=== PATIENT | female | born 1955 | race Caucasian/White ===

== ENCOUNTER 2024-12-18 12:13 | Emergency (ER) | payer OTHER, MEDICARE, SELFPAY ==
--- NOTE | 2024-12-18 12:20 | ED.URI ---
HPI - URI/Sore Throat General Chief Complaint: Upper Respiratory Infection Stated Complaint: SORE THROAT/EARS/BODY ACHES/SWEATS/TIRED Source: patient and RN notes reviewed Mode of arrival: ambulatory Limitations: no limitations History of Present Illness MD elicited complaint: cough Review of Systems Review of Systems: CONSTITUTIONAL: Endorses malaise, body aches, chills, sweats, fever EYES: Denies visual changes, redness, or discharge ENT: Reports rhinorrhea, congestion, sinus pain, otalgia, sore throat CARDIOVASCULAR: Denies chest pain, palpitations, edema RESPIRATORY: Reports cough, post nasal drainage. Denies dyspnea GASTROINTESTINAL: Denies abdominal pain, nausea, vomiting, diarrhea SKIN: Denies rash or itching NEUROLOGIC: Denies headache Exam Narrative: GENERAL: Ill-appearing, nontoxic no acute distress. EYES: conjunctivae clear ENT: Mucous membranes moist. TM pearly drake with dull light reflex bilaterally; no tragal tenderness. Oropharynx erythematous without lesions or exudate, no drooling, no hoarseness, no trismus, uvula midline. No tripod positioning, muffled voice, soft palate or pharyngeal wall bulging NECK: Supple. No lymphadenopathy CHEST: Clear to auscultation, breath sounds equal. No wheezing, rhonchi, rales, or stridor. No respiratory distress, speaks in full sentences. HEART: Regular rate and rhythm. No murmur heard. SKIN: Warm, dry, no rash. NEURO: Alert and oriented x3. PSYCH: Normal mood and affect Course Course Emergency Course: Patient is aware of diagnosis, understands and agrees to treatment plan. Anticipatory guidance given. Patient agrees to follow-up as directed and is aware of reasons to seek care at the emergency department. Portions of this record may have been created with voice recognition software Level of Care: Express Care Visit Vital Signs Vital signs: reviewed MDM - URI/Sore Throat MDM Narrative Medical decision making narrative: Discussed physical exam findings. Advised supportive measures and signs/symptoms to go to the ER. Pt is appropriate for outpt treatment and f/u. Differential Diagnosis Differential diagnosis: Likely upper respiratory infection, sinusitis and viral infection Discharge Plan Discharge Patient Language: Qatari Follow-up/Referrals: Marlo,Hannah [Other]
[2024-12-18 12:30] VITALS: BP 129/59; PULSE 79; RESP 16; TEMP 36.3; O2SAT 98
[2024-12-18 12:47] LABS: EDCOVIDSCREEN Negative (Negative); EDINFLUASCREEN Negative (Negative); EDINFLUBSCREEN Negative (Negative); EDSTREPNEGPOS1 Negative (Negative)
--- NOTE | 2024-12-18 13:07 | ED_ITS ---
HPI - URI/Sore Throat General Chief Complaint: Upper Respiratory Infection Stated Complaint: SORE THROAT/EARS/BODY ACHES/SWEATS/TIRED Time Seen by Provider: 12/18/24 13:08 Source: patient and RN notes reviewed Mode of arrival: ambulatory Limitations: no limitations History of Present Illness HPI Narrative: 69 y/o female with hx HTN and asthma presented for c/o sore throat, headache, body aches, sinus pressure/congestion, cough, body aches, fever/chills. Onset 4 days. son tested positive for strep 5 days ago. Denies sob, wheezing, n/v/d. Taking Robitussin, Mucinex, and Nyquil. MD elicited complaint: cough Related Data Home Medications ?Medication ?Instructions ?Recorded ?Confirmed ?Last Taken ?Type amitriptyline 25 mg tablet mg 12/18/24 Unknown Histor y amlodipine 2.5 mg tablet mg 12/18/24 Unknown History amlodipine 5 mg tablet mg 12/18/24 Unknown History atorvastatin 20 mg tablet mg 12/18/24 Unknown History budesonide-formoterol HFA 80 inhalation 12/18/24 Unkn own History mcg-4.5 mcg/actuation aerosol inhaler dapagliflozin propanediol 10 mg mg 12/18/24 Unknown H istory tablet furosemide 20 mg tablet mg 12/18/24 Unknown History levothyroxine 50 mcg tablet mcg 12/18/24 Unknown Hist ory (Synthroid) losartan 100 mg tablet mg 12/18/24 Unknown History meloxicam 7.5 mg tablet mg 12/18/24 Unknown History metformin 500 mg tablet,extended mg PO 12/18/24 Unkno wn History release 24 hr metoprolol succinate 100 mg mg PO 12/18/24 Unknown Hi story tablet,extended release 24 hr montelukast 10 mg tablet mg 12/18/24 Unknown History rimegepant 75 mg disintegrating mg 12/18/24 Unknown H istory tablet (Nurtec ODT) tirzepatide (weight loss) 2.5 mg subcut 12/18/24 Unkn own History mg/0.5 mL subcutaneous pen injector (Zepbound) Allergies Allergy/AdvReac Type Severity Reaction Status Date / Time iodine Allergy Intermediate Hives Verified 12/18/24 12:29 Sulfa (Sulfonamide Allergy Intermediate Rash Verified 12/18/24 12:29 Antibiotics) Review of Systems Review of Systems: CONSTITUTIONAL: Endorses malaise, body aches, chills, sweats, fever EYES: Denies visual changes, redness, or discharge ENT: Reports rhinorrhea, congestion, sore throat CARDIOVASCULAR: Denies chest pain, palpitations, edema RESPIRATORY: Reports cough, post nasal drainage. Denies dyspnea GASTROINTESTINAL: Denies abdominal pain, nausea, vomiting, diarrhea SKIN: Denies rash or itching NEUROLOGIC: Denies headache [facility] Past Medical History Medical History (Updated 12/18/24 @ 13:17 by Krista Uribe, [employer]) Hypertension Asthma Exam Narrative: GENERAL: mildly Ill-appearing, nontoxic no acute distress. EYES: conjunctivae clear ENT: Mucous membranes moist. TMs pearly drake with dull light reflex and clear effusion bilaterally; no tragal tenderness. Oropharynx not erythematous without lesions or exudate, tonsils absent no drooling, no hoarseness, no trismus, uvula midline. No tripod positioning, muffled voice, soft palate or pharyngeal wall bulging NECK: Supple. No lymphadenopathy CHEST: Clear to auscultation, breath sounds equal. No wheezing, rhonchi, rales, or stridor. No respiratory distress, speaks in full sentences. HEART: Regular rate and rhythm. SKIN: Warm, dry, no rash. NEURO: Alert and oriented x3. PSYCH: Normal mood and affect Course Course Emergency Course: Patient is aware of diagnosis, understands and agrees to treatment plan. Anticipatory guidance given. Patient agrees to follow-up as directed and is aware of reasons to seek care at the emergency department. Portions of this record may have been created with voice recognition software Level of Care: Express Care Visit Vital Signs Vital signs: Vital Signs Temperature 97.3 F L 12/18/24 12:30 Pulse Rate 79 12/18/24 12:30 Respiratory Rate 16 12/18/24 12:30 Blood Pressure 129/59 L 12/18/24 12:30 Pulse Oximetry 98 12/18/24 12:30 Temperature 97.3 F L 12/18/24 12:30 Pulse Rate 79 12/18/24 12:30 Respiratory Rate 16 12/18/24 12:30 Blood Pressure 129/59 L 12/18/24 12:30 Pulse Oximetry 98 12/18/24 12:30 reviewed MDM - URI/Sore Throat MDM Narrative Medical decision making narrative: Discussed physical exam findings; neg flu covid and strep. will culture. Advised supportive measures for now. Reviewed signs/symptoms to go to the ER. Pt is appropriate for outpt treatment and f/u. Differential Diagnosis Differential diagnosis: Likely upper respiratory infection, otitis media, sinusitis, viral infection, bronchitis, influenza and pharyngitis Lab Data Labs: Lab Results 12/18/24 Range/Units 12:45 POC Influenza A Ag Negative (Negative) POC Influenza B Ag Negative (Negative) POC SARS CoV-2 Ag Negative (Negative) POC Grp A Strep Screen Negative (Negative) Discharge Plan Discharge Clinical Impression: Upper respiratory infection Patient Disposition: Home Condition: Stable Instructions: Upper Respiratory Infection (ED) Additional Instructions: Flu and COVID negative. Rapid strep swab was negative today You will be notified in a few days if the culture comes back positive for strep, and appropriate antibiotics will be called in at that time. if symptoms are due to a viral illness, it is not treated with antibiotics. Viral symptoms can be present for up to 10-14 days. Recommendations: Flonase spray and Zyrtec for sinus congestion Cough syrup may cause drowsiness; avoid driving or take it at night time. Tylenol every 8 hours as needed for pain/fever Soft foods, cool liquids, warm tea. Gargle with warm saltwater twice a day. Chloraseptic spray and throat lozenges. Rest and stay hydrated. --Follow up with your PCP --Go to the ER immediately if you cannot swallow your saliva, trouble breathing/ wheezing, throat swelling, pain is persistent and severe Patient Language: [place] Island[place] Prescriptions: No Action atorvastatin 20 mg tablet metoprolol succinate 100 mg tablet extended release 24 hr PO amlodipine 2.5 mg tablet amlodipine 5 mg tablet meloxicam 7.5 mg tablet amitriptyline 25 mg tablet levothyroxine [Synthroid] 50 mcg tablet montelukast 10 mg tablet furosemide 20 mg tablet losartan 100 mg tablet metformin 500 mg tablet extended release 24 hr PO budesonide-formoterol 80-4.5 mcg/actuation HFA aerosol inhaler INHALATION dapagliflozin propanediol 10 mg tablet Nurtec ODT 75 mg tablet,disintegrating Zepbound 2.5 mg/0.5 mL pen injector SUBCUT Follow-up/Referrals: Marlo,Hannah [Other] Stand Alone Forms: Work/School Release IP
== END 2024-12-18 13:21 | disposition home or self-care (01) ==
PROVIDERS: Emergency Provider Nurse Practitioner Family
DX: J06.9 Acute upper respiratory infection, unspecified (principal); I10 Essential (primary) hypertension; Z79.899 Other long term (current) drug therapy; Z79.84 Long term (current) use of oral hypoglycemic drugs; Z79.1 Long term (current) use of non-steroidal anti-inflammatories (NSAID); Z20.822 Contact with and (suspected) exposure to COVID-19
CPT/HCPCS: 87081; 87426; 87804; 87880; 99203; G0463

== ENCOUNTER 2025-03-23 10:59 | Emergency (ER) | payer OTHER, MEDICARE, SELFPAY ==
--- NOTE | 2025-03-23 11:03 | ED_ITS ---
HPI - URI/Sore Throat General Chief Complaint: Upper Respiratory Infection Stated Complaint: sore throat, cough Time Seen by Provider: 03/23/25 11:03 Source: patient Mode of arrival: ambulatory Limitations: no limitations History of Present Illness HPI Narrative: Soraida is a 70-year-old female patient presenting to the clinic today with complaints of sore throat, nasal congestion, nausea, and cough x3 days. She r eports her son tested positive yesterday for strep. Is requesting strep testing. Related Data Home Medications ?Medication ?Instructions ?Recorded ?Confirmed ?Last Taken ?Type amitriptyline 25 mg tablet mg 12/18/24 Unknown Histor y amlodipine 5 mg tablet mg 12/18/24 Unknown History atorvastatin 20 mg tablet mg 12/18/24 Unknown History budesonide-formoterol HFA 80 inhalation 12/18/24 Unkn own History mcg-4.5 mcg/actuation aerosol inhaler dapagliflozin propanediol 10 mg mg 12/18/24 Unknown H istory tablet furosemide 20 mg tablet mg 12/18/24 Unknown History levothyroxine 50 mcg tablet mcg 12/18/24 Unknown Hist ory (Synthroid) losartan 100 mg tablet mg 12/18/24 Unknown History meloxicam 7.5 mg tablet mg 12/18/24 Unknown History metformin 500 mg tablet,extended mg PO 12/18/24 Unkno wn History release 24 hr metoprolol succinate 100 mg mg PO 12/18/24 Unknown Hi story tablet,extended release 24 hr montelukast 10 mg tablet mg 12/18/24 Unknown History rimegepant 75 mg disintegrating mg 12/18/24 Unknown H istory tablet (Nurtec ODT) tirzepatide (weight loss) 2.5 mg subcut 12/18/24 Unkn own History mg/0.5 mL subcutaneous pen injector (Zepbound) Allergies Allergy/AdvReac Type Severity Reaction Status Date / Time iodine Allergy Intermediate Hives Verified 03/23/25 11:23 Sulfa (Sulfonamide Allergy Intermediate Rash Verified 03/23/25 11:23 Antibiotics) Review of Systems Review of Systems: Pertinent positives per HPI. Patient denies any fever, chills, rash, headache, visual changes, dizziness, shortness of breath, chest pain, palpitations, nausea, vomiting, diarrhea, constipation, abdominal pain, or any urinary issues. [facility] Past Medical History Medical History Hypertension Asthma Comments At the time of my signature, I reviewed and agree with the nursing past medical, surgical, social, and family history. There is no relevant family history pertinent to the patient complaint. Exam Narrative: General: Well-developed, morbidly obese, in no apparent distress Head: Normocephalic, atraumatic Eyes: Pupils equally round and reactive to light bilaterally, EOM intact, sclera and conjunctive clear, no discharge, lids normal Ears: TMs intact and congested, ear canals clear, no drainage, grossly hearing normal. Nose: Nares patent, clear nasal discharge, mild inflammation, no sinus tenderness. Mouth: Oropharynx red without lesions or masses, good dentition, MMM. Postnasal drip Neck: Supple, trachea midline, no enlargement of anterior or posterior cervical nodes, no thyroid masses or goiter palpable. Cardio: Regular rate and rhythm, s1 and s2 normal, no murmur appreciated. Resp: Clear to auscultation bilaterally anteriorly and posteriorly, no rhonchi, rales, wheezing or rubs Course Course Level of Care: Express Care Visit Vital Signs Vital signs: Vital Signs Temperature 36.1 C L 03/23/25 11:17 Pulse Rate 66 03/23/25 11:17 Respiratory Rate 18 03/23/25 11:17 Blood Pressure 100/58 L 03/23/25 11:17 Pulse Oximetry 98 03/23/25 11:17 Oxygen Delivery Room Air 03/23/25 11:17 Temperature 36.1 C L 03/23/25 11:17 Pulse Rate 66 03/23/25 11:17 Respiratory Rate 18 03/23/25 11:17 Blood Pressure 100/58 L 03/23/25 11:17 Pulse Oximetry 98 03/23/25 11:17 Oxygen Delivery Room Air 03/23/25 11:17 [facility] Narrative Medical decision making narrative: At the time of visit patient is resting comfortably on the exam table. Patient appears to be nontoxic. Complaints of sore throat, nasal congestion, nausea, and cough x3 days. She reports her son tested positive yesterday for strep. Is requesting strep testing. On exam patient has bilateral TMs intact and congested, clear nasal drainage, mild anterior turbinate inflammation, oral pharynx red with postnasal drip, no cervical lymphadenopathy, lung sounds are clear, heart rates regular rate and rhythm. COVID, flu, strep test were ordered. Labs: COVID, influenza, and strep test were performed. Plan: Supportive measures were discussed with the patient and they voiced understanding discharge instructions and agrees to treatment plan. Return precautions reviewed Differential Diagnosis Differential Diagnosis: Differential diagnostic considerations for upper respiratory infection include upper respiratory infection, croup, otitis media, sinusitis, viral infection, bronchitis, influenza, pharyngitis, strep, uvulitis. Lab Data Labs: Lab Results 03/23/25 Range/Units 11:37 POC Influenza A Ag Negative (Negative) POC Influenza B Ag Negative (Negative) POC Grp A Strep Screen Negative (Negative) Discharge Plan Discharge Clinical Impression: Viral infection Upper respiratory infection Qualifiers: URI type: unspecified URI Qualified Code(s): J06.9 - Acute upper respiratory infection, unspecified Pharyngitis Qualifiers: Pharyngitis/tonsillitis etiology: unspecified etiology Qualified Code(s): J02.9 - Acute pharyngitis, unspecified Patient Disposition: Home Condition: Stable Instructions: Antibiotic Form, Pharyngitis (ED), Viral Syndrome (ED), Cold Symptoms (ED) Additional Instructions: COVID, flu, strep test were all negative in the clinic today. We will send strep for culture. Increase fluids and stay well hydrated May take Tylenol or motrin as directed on bottle for pain/fever May use Flonase 1 spray in each nare daily May take OTC antihistamines such as Zyrtec or Claritin daily as directed on bottle May apply Vicks vapor rub to chest to open sinuses Sinus rinses for congestion Cepacol spray, cough drops, throat lozenges, warm tea with honey/lemon, gargle salt water to soothe throat BRAT diet for diarrhea Clear liquids x 24 hours then advance as tolerated for nausea/vomiting Go to the ED if you develop a worsening in your condition- high fever not controlled by Tylenol or Motrin, dehydration, weakness, lethargy, shortness of breath, or chest pain. Follow up with your PCP in 3-5 days if symptoms persist. Patient Language: [place]ian Prescriptions: No Action atorvastatin 20 mg tablet metoprolol succinate 100 mg tablet extended release 24 hr PO amlodipine 5 mg tablet meloxicam 7.5 mg tablet amitriptyline 25 mg tablet levothyroxine [Synthroid] 50 mcg tablet montelukast 10 mg tablet furosemide 20 mg tablet losartan 100 mg tablet metformin 500 mg tablet extended release 24 hr PO budesonide-formoterol 80-4.5 mcg/actuation HFA aerosol inhaler INHALATION dapagliflozin propanediol 10 mg tablet Nurtec ODT 75 mg tablet,disintegrating Zepbound 2.5 mg/0.5 mL pen injector SUBCUT Follow-up/Referrals: UNKNOWN,DOCTOR [Non-Staff] Stand Alone Forms: Work/School Release IP Time of Disposition: 11:31 Quality NIHSS Nursing Documentation ED NIHSS nursing documentation: reviewed/agree
[2025-03-23 11:17] VITALS: BP 100/58; PULSE 66; RESP 18; TEMP 36.1; O2SAT 98
[2025-03-23 11:39] LABS: EDINFLUASCREEN Negative (Negative); EDINFLUBSCREEN Negative (Negative); EDSTREPNEGPOS1 Negative (Negative)
[2025-03-23 11:51] LABS: EDCOVIDSCREEN Negative (Negative)
== END 2025-03-23 11:41 | disposition home or self-care (01) ==
PROVIDERS: Emergency Provider Nurse Practitioner Family
DX: J06.9 Acute upper respiratory infection, unspecified (principal); B34.9 Viral infection, unspecified; I10 Essential (primary) hypertension; J45.909 Unspecified asthma, uncomplicated; Z20.822 Contact with and (suspected) exposure to COVID-19
CPT/HCPCS: 87081; 87426; 87804; 87880; 99213; G0463